=== PATIENT | female | born 1960 | race Caucasian/White ===

== ENCOUNTER 2017-06-13 19:57 | Emergency (ER) | payer BC ==
--- NOTE | 2017-06-13 20:00 | PDOC ---
History of Present Illness - History of Present Illness Initial Comments: HPI: The patient is a 56 year old female who presents to the emergency department complaining of right upper quadrant pain which began this morning. The patient reports waking up with mild right upper quadrant pain this morning which worsened after she ate a bagel with cream cheese. She reports the pain subsided , but after eating chicken at a restaurant for dinner, she felt a worse pain return. The patient describes the pain as severe and exacerbated through exertion. She reports an associated symptom of nausea. The patient denies chest pain, shortness of breath, headache, and dizziness. Denies fevers, chills, vomiting, diarrhea, and constipation. Denies dysuria, frequency, urgency, and hematuria. PAST MEDICAL HISTORY: Hernia (2014), Kidney Stones, Bipolar PAST SURGICAL HISTORY: Bariatric Surgery/Removal of Tail of Spleen FAMILY HISTORY: no pertinent history SOCIAL HISTORY: Pt lives with family and is employed. Alcohol consumption 5x a week. MEDICATIONS: reviewed ALLERGIES: As per nursing notes ROS: General: No fevers or chills, no weakness, no weight loss HEENT: No change in vision. No sore throat,. No ear pain CardioVascular: No chest pain or shortness of breath Respiratory:No cough, or wheezing. Gastrointestinal: (+)Nausea. No vomiting, diarrhea or constipation, No rectal bleeding Genitourinary: No dysuria, hematuria, or frequency Musculoskeletal: (+)RUQ pain.No joint pain or swelling Neurologic: No headache, vertigo, dizziness or loss of consciousness Psychiatric: nor depression Skin: No rashes or easy bruising Endocrine: no increased thirst or abnormal weight change Allergic: no skin or latex allergy All other systems reviewed and normal PE: General: Well-nourished well-developed individual, no acute distress HEENT: Throat: Normal, tonsils normal, no erythema or exudate Neck: Supple, no meningeal signs, no lymphadenopathy Eyes::Pupils equal reactive and round, extraocular motion intact Chest: Nontender to palpation Cardiac: S1-S2 normal, regular rate and rhythm, no murmurs rubs or gallops Respiratory: Lungs clear to auscultation bilateral Abdomen: (+)Moderately tender to palpation in abdomen diffusely with exception to RLQ. (+)Markedly tender to palpation in epigastric area. (+)Questionable palpable hernia left to umbilicus that is tender, but reducible. (+) Bowel sounds decreased, but present. No guarding or rebound. Extremities: Warm, dry, no cyanosis, clubbing, or edema Skin: No rashes Neuro: Alert and oriented x3, nonfocal exam, grossly intact. Psych: Normal mood and affect <Flower Man - Last Filed: 06/13/17 21:17> - General History Source: Patient Exam Limitations: No Limitations - History of Present Illness Initial Comments: 06/13/17 20:30 A portion of this note was documented by scribe services under my direction. I have reviewed the details of the note, within reason, and agree with the documentation. The case summary and management plan written by me. Medical decision making this is a 56-year-old female who comes in complaining of abdominal pain. Patient has an extensive history of abdominal surgeries including gastric bypass, hernia surgery with mesh repair, splenectomy. Who comes in complaining of primarily upper abdominal pain patient also has a history of kidney stones but denies history of gallstones. Differential diagnosis includes renal colic, cholecystitis, adhesions and obstruction, gastric bypass complications, incarcerated hernia, Will obtain workup including CBC, comp, lipase, CAT scan with IV contrast, EKG Will medicate with morphine and Zofran, well hydrated with IV fluids Will reassess and evaluated results of workup. 21:00 reevaluation: pt receiving fluids and pain medication, feels a little better. 06/13/17 23:01 22:00 Patient still having some pain and discomfort. Will remedicated with some more morphine 23:00 Patient's CAT scan shows no acute intra-abdominal pathology there is some incidental findings of bilateral renal cysts bilateral renal stones and a left angioma mild by home of the kidney. Otherwise there are a few gallstones but otherwise no gallbladder pathology there is no evidence of obstruction Patient has normal white count and normal differential, chem patient's chemistries are all normal. There is a trace amount of blood a few white cells and a trace amount of bacteria in the urine but otherwise patient has no urinary tract symptoms. Patient does feel somewhat better after the morphine and fluids. Patient is able to tolerate by mouth's. Patient discharged home will follow-up with her primary care doctor tomorrow if she is not better 06/13/17 23:12 Patient Name: JULIET BAIRES THIS IS A PRELIMINARY REPORT FROM [facility] DATE OF SERVICE: 2017-06-13 21:12:27 IMAGES: 487 EXAM: CT abdomen and pelvis without contrast HISTORY: Abdominal pain COMPARISON: None. FINDINGS: There is no bowel obstruction, free air, or free fluid. Negative for diverticulitis or colitis. Appendix not visualized. No pericecal inflammation. 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 Left renal parapelvic cysts. Bilateral nonobstructing renal stones. No ureteral stones or urinary tract obstruction. Tiny gallstones noted. The liver appears somewhat large even accounting for a Verito's lobe. Recommend followup Absent spleen. Status post gastric and bowel surgery No obvious abnormalities of the reproductive organs. No acute pancreatic abnormalities. Osseous structures are intact.. THIS DOCUMENT HAS BEEN ELECTRONICALLY SIGNED Elvis Mora MD <Kalani Mac I - Last Filed: 06/13/17 23:13> - General Chief Complaint: Pain, Acute Stated Complaint: LUQ PAIN RADIATING INTO BACK Time Seen by Provider: 06/13/17 20:00 Past History <Flower Man - Last Filed: 06/13/17 21:17> <Kalani Mac I - Last Filed: 06/13/17 23:13> - Past Medical History Allergies/Adverse Reactions: Allergies Allergy/AdvReac Type Severity Reaction Status Date / Time No Known Allergies Allergy Verified 06/13/17 19:59 Home Medications: Ambulatory Orders Clonazepam [Klonopin] 0.5 mg PO DAILY 06/13/17 Lamotrigine [Lamictal] 100 mg PO DAILY 06/13/17 Omeprazole 20 mg PO DAILY 06/13/17 Venlafaxine HCl [Effexor -] 75 mg PO DAILY 06/13/17 *Physical Exam - Vital Signs Last Vital Signs Temp Pulse Resp BP Pulse Ox 98.7 F 78 18 137/91 98 06/13/17 20:01 06/13/17 20:01 06/13/17 20:01 06/13/17 20:01 06/13/17 20:01 <Flower Man - Last Filed: 06/13/17 21:17> ED Treatment Course - LABORATORY CBC & Chemistry Diagram: 06/13/17 20:25 06/13/17 20:25 - ADDITIONAL ORDERS Additional order review: Laboratory Results 06/13/17 06/13/17 06/13/17 20:25 20:25 20:25 Sodium 136 Potassium 4.4 Chloride 108 H Carbon Dioxide 24 Anion Gap 4 L BUN 20 H Creatinine 1.0 Creat Clearance w eGFR 57.56 Random Glucose 87 Calcium 9.1 Total Bilirubin 0.5 AST 23 ALT 20 Alkaline Phosphatase 65 Creatine Kinase 85 Troponin I < 0.03 Total Protein 6.8 Albumin 3.8 Urine Color Urine Appearance Urine pH Ur Specific [place] Urine Protein Urine Glucose (UA) Urine Ketones Urine Blood Urine Nitrite Urine Bilirubin Urine Urobilinogen Ur Leukocyte Esterase Urine RBC Urine WBC Urine Bacteria 06/13/17 20:05 Sodium Potassium Chloride Carbon Dioxide Anion Gap BUN Creatinine Creat Clearance w eGFR Random Glucose Calcium Total Bilirubin AST ALT Alkaline Phosphatase Creatine Kinase Troponin I Total Protein Albumin Urine Color Yellow Urine Appearance Clear Urine pH 6.5 Ur Specific [place] 1.025 Urine Protein Negative Urine Glucose (UA) Negative Urine Ketones Trace Urine Blood Trace-intact H Urine Nitrite Negative Urine Bilirubin Negative Urine Urobilinogen 0.2 Ur Leukocyte Esterase Trace H Urine RBC 5-10 Urine WBC 2-4 Urine Bacteria Few 06/13/17 20:25 RBC 4.02 MCV 96.2 H MCHC 34.3 RDW 13.1 MPV 8.7 Neutrophils % 52.4 Lymphocytes % 31.9 Monocytes % 10.6 H Eosinophils % 3.0 Basophils % 2.1 H - Medications Given in the ED: ED Medications Discontinued Medications Generic Name Dose Route Start Last Admin Trade Name Laura PRN Reason Stop Dose Admin Morphine Sulfate 4 mg 06/13/17 20:23 06/13/17 20:49 Morphine Injection - IVPUSH 06/13/17 20:24 4 mg ONCE ONE Administration Ondansetron HCl 4 mg 06/13/17 20:23 06/13/17 20:49 Zofran Injection IVPUSH 06/13/17 20:24 4 mg ONCE ONE Administration <Flower Man - Last Filed: 06/13/17 21:17> - LABORATORY CBC & Chemistry Diagram: 06/13/17 20:25 06/13/17 20:25 <Kalani Mac I - Last Filed: 06/13/17 23:13> *DC/Admit/Observation/Transfer - Attestations Scribe Attestion: Documentation prepared by Flower Man, acting as medical coding auditor for Kalani Mac MD. <DonovanMandojoe - Last Filed: 06/13/17 21:17> - Discharge Dispostion Admit: No <Kalani Mac I - Last Filed: 06/13/17 23:13> Diagnosis at time of Disposition: Abdominal pain Qualifiers: Abdominal location: upper abdomen, unspecified Qualified Code(s): R10.10 - Upper abdominal pain, unspecified - Discharge Dispostion Disposition: HOME Condition at time of disposition: Stable - Referrals Referrals: Rajani Quigley MD [Primary Care Provider] - - Patient Instructions Additional Instructions: Return to the emergency department immediately with ANY new, persistent or worsening symptoms. Continue any medications as previously prescribed by your physician. You should follow up with your primary doctor as soon as possible regarding today's emergency department visit. . Please make sure your doctor reviews the results of your emergency evaluation. Thank you for coming to the Emergency Department today for your care. It was a pleasure to see you today. Please note that your evaluation is INCOMPLETE until you follow-up with your doctor. - Post Discharge Activity
[2017-06-13 20:13] VITALS: BP 137/91; PULSE 78; TEMP 98.7; BMI 29.2
[2017-06-13 20:17] LABS: PH,URINE 6.5 (4.5-8); URINE APPEARANCE Clear; URINE BILIRUBIN Negative (NEGATIVE); URINE BLOOD Trace-intact (NEGATIVE); URINE COLOR YELLOW; URINE GLUCOSE (UA) Negative (NEGATIVE); URINE KETONE Trace (NEGATIVE); URINE LEUK ESTERASE TRACE (NEGATIVE); URINE NITRITE Negative (NEGATIVE); URINE PROTEIN Negative (NEGATIVE); URINE UROBILINOGEN 0.2 (0.2-1.0)
[2017-06-13 20:23] LABS: URINE BACTERIA FEW /hpf (NEGATIVE)
[2017-06-13] MEDS ORDERED: ONDANSETRON 4 MG/2 ML VIAL IVPUSH ONE (20:23)
[2017-06-13] MEDS ORDERED: morphine CARPU-JECT 4 MG/1 ML DISP.SYRIN IVPUSH ONE ×2 (20:23→21:22)
[2017-06-13] MEDS ORDERED: SODIUM CHLORIDE 1,000 ML IV ONE (20:23)
[2017-06-13] MEDS ORDERED: ONDANSETRON 4 MG/2 ML VIAL ONE (20:41)
[2017-06-13] MEDS ORDERED: morphine SULFATE 4 MG/ML VIAL ONE ×2 (20:41→21:22)
[2017-06-13 20:48] LABS: BASO % 2.1 % (0-2.0); HEMATOCRIT 38.7 % (32.4-45.2); HEMOGLOBIN 13.3 GM/dl (10.7-15.3); LYMPH % 31.9 % (8-40); MCHC 34.3 g/dl (32.0-36.0); MEAN CELL VOLUME 96.2 fl (80-96); MEAN PLT VOLUME 8.7 fl (7.5-11.1); MONO % 10.6 % (3.8-10.2); NEUT % 52.4 % (42.8-82.8); PLATELET COUNT 497 K/MM3 (134-434); RBC 4.02 M/mm3 (3.60-5.2); RDW 13.1 % (11.6-15.6); WHITE BLOOD COUNT 7.9 K/mm3 (4.0-10.8)
[2017-06-13 20:53] LABS: ALBUMIN 3.8 g/dl (3.5-5.0); ALK PHOS 65 U/L (32-92); ANION GAP 4 (8-16); BLOOD UREA NITROGEN 20 mg/dl (7-18); CALCIUM 9.1 mg/dl (8.4-10.2); CHLORIDE 108 mmol/L (98-107); CO2 24 mmol/L (22-28); GLUCOSE,RANDOM 87 mg/dl (74-106); POTASSIUM 4.4 mmol/L (3.5-5.1); SGOT/AST 23 U/L (10-42); SGPT/ALT 20 U/L (10-40); SODIUM 136 mmol/L (136-145); TOT PROT 6.8 g/dl (6.4-8.3)
[2017-06-13 21:01] LABS: BILIRUBIN,TOTAL 0.5 mg/dl (0.2-1.0)
--- NOTE | 2017-06-14 12:32 | EKG ---
Test Reason : Blood Pressure : / mmHG Vent. Rate : 072 BPM Atrial Rate : 072 BPM P-R Int : 148 ms QRS Dur : 086 ms QT Int : 420 ms P-R-T Axes : 054 038 039 degrees QTc Int : 459 ms NORMAL SINUS RHYTHM NORMAL ECG NO PREVIOUS ECGS AVAILABLE Confirmed by ROLLY BOYKIN MD ([id number]) on 06/14/2017 12:32:18 PM Referred By: DARRIN LINO Confirmed By:ROLLY BOYKIN MD
== END 2017-06-13 23:21 | disposition home or self-care (01) ==
LOC: FER 19:57
PROC: 3E033NZ Introduction of Analgesics, Hypnotics, Sedatives into Peripheral Vein, Percutaneous Approach (ICD-10-PCS; principal; 2017-06-13)
PROC: 3E033GC Introduction of Other Therapeutic Substance into Peripheral Vein, Percutaneous Approach (ICD-10-PCS; 2017-06-13)
PROC: 3E0337Z Introduction of Electrolytic and Water Balance Substance into Peripheral Vein, Percutaneous Approach (ICD-10-PCS; 2017-06-13)
DX: R10.10 Upper abdominal pain, unspecified (principal); F31.9 Bipolar disorder, unspecified
CPT/HCPCS: 36415; 74176-TC; 80053; 81003; 81015; 82550; 83690; 84484; 85025; 87086; 93005; 99281-25; J7030

== ENCOUNTER 2019-04-21 12:09 | Emergency (ER) | payer BC ==
[2019-04-21] MEDS ORDERED: methylPREDNISolone NA SUCC 125 MG/2 ML VIAL IVPUSH ONE (12:12)
[2019-04-21] MEDS ORDERED: FAMOTIDINE 20 MG/50 ML IVPB 20 MG/50 ML MG IVPB ONE ×2 (12:12→12:26)
[2019-04-21] MEDS ORDERED: EPINEPHrine 1:1,000 0.3 MG/0.3 ML SYR IM ONE (12:13)
[2019-04-21] MEDS ORDERED: ONDANSETRON 4 MG/2 ML VIAL IVPUSH ONE (12:13)
[2019-04-21] MEDS ORDERED: SODIUM CHLORIDE 1,000 ML IV STA (12:14)
[2019-04-21] MEDS ORDERED: methylPREDNISolone NA SUCC 125 MG/2 ML VIAL ONE (12:26)
[2019-04-21] MEDS ORDERED: ONDANSETRON 4 MG/2 ML VIAL ONE (12:26)
[2019-04-21] MEDS ORDERED: EPINEPHrine/PF 1 MG/1 ML (1:1,000) AMPULE ONE (12:26)
[2019-04-21 12:31] VITALS: TEMP 98.2; BMI 26.5
--- NOTE | 2019-04-21 12:38 | PDOC ---
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 She denied chest pain, cough, fever, abdominal pain, back pain, rash. Pt denied HTN medications or ACEI or ARB. ROS General: denied fever, chills, generalized weakness. HEENT: denied sore throat, rhinorrhea, ear pain. Cardiovascular: denied chest pain, palpitations, syncope, diaphoresis. Respiratory: admitted to shortness of breath. denied cough, sputum production, hemoptysis. Gastrointestinal: admitted to nausea, vomiting. denied abdominal pain, diarrhea , constipation, blood in stool. Genitourinary: denied dysuria, increased urinary frequency, hematuria, urinary incontinence, flank pain. Back: denied back pain. Musculoskeletal: denied joint pain, muscle pain, joint swelling. Neurological: denied headache, dizziness, numbness, tingling, weakness. Integumentary: denied rash, laceration, abrasion. Hematologic/Lymphatic: denied bruising or bleeding. PE Constitutional: Well-nourished, Well-developed, appearing stated age. Actively gagging. HEENT: head is normocephalic, atraumatic. EOMI. PERRLA. mild uvular swelling. no posterior pharyngeal erythema. no tonsillar swelling or exudates bilaterally. uvula midline. no peritonsillar swelling. no jaw tenderness or misalignment. Neck: supple. Full ROM. Cardiovascular: regular heart rhythm. Normal S1 and S2. no murmurs. no pericardial friction rub. Respiratory: clear to auscultation bilaterally. no crackles, rhonchi or wheezing. no stridor. Gastrointestinal: soft, flat, nontender. normal bowel sounds. no rebound, guarding, or masses. Extremities: peripheral pulses intact and equal. no lower extremity edema noted. Neurological: CN 2-12 grossly intact. moves all four extremities. Psych: awake, alert, oriented x3. follows commands. answers questions appropriately. Past History - Past Medical History Allergies/Adverse Reactions: Allergies Allergy/AdvReac Type Severity Reaction Status Date / Time No Known Allergies Allergy Verified 04/21/19 12:13 Home Medications: Ambulatory Orders Clonazepam [Klonopin] 0.5 mg PO DAILY 06/13/17 Lamotrigine [Lamictal] 150 mg PO DAILY 06/13/17 Omeprazole 20 mg PO DAILY 06/13/17 Venlafaxine HCl [Effexor -] 75 mg PO DAILY 06/13/17 Epinephrine [Epipen 2-Roddy] 0.3 mg IJ ASDIR #1 kit 04/21/19 Epinephrine [Epipen 2-Roddy] 0.3 mg IJ ASDIR #1 kit 04/21/19 predniSONE [Deltasone -] 40 mg PO DAILY #8 tablet 04/21/19 - Psycho Social/Smoking Cessation Hx Smoking History: Never smoked Have you smoked in the past 12 months: No Hx Alcohol Use: Yes (5 TIMES A WEEK) Drug/Substance Use Hx: No Substance Use Type: Alcohol *Physical Exam - Vital Signs Last Vital Signs Temp Pulse Resp BP Pulse Ox 98.2 F 107 H 26 H 187/101 H 100 04/21/19 12:04/21/19 12:04/21/19 12:04/21/19 12:04/21/19 12:09 ED Treatment Course - LABORATORY CBC & Chemistry Diagram: 04/21/19 12:20 04/21/19 12:20 Medical Decision Making - Medical Decision Making 58 year old female with above PMH presented to ED with acute airway swelling, nausea, vomiting. Initial Vital Signs Temp Pulse Resp BP Pulse Ox 98.2 F 107 H 26 H 187/101 H 100 04/21/19 12:09 04/21/19 12:04/21/19 12:04/21/19 12:04/21/19 12:09 Labs ordered: CBC, CMP Imaging ordered: none Medications ordered: pepcid, zofran, solumedrol 125 mg IV once, Benadryl 25 mg IV once, epi-pen 0.3 mg SQ once, normal saline bolus 1000 cc once Suspected allergic reaction with unknown source of inciting substance. Pt denied new medications, reported only allergy is Sulfa. Pt denied new foods, reported last ate smoothie at 0900. 04/21/19 13:28 Laboratory Last Values WBC 10.4 K/mm3 (4.0-10.8) 04/21/19 12:20 RBC 3.59 M/mm3 (3.60-5.2) L 04/21/19 12:20 Hgb 12.2 GM/dl (10.7-15.3) 04/21/19 12:20 Hct 36.8 % (32.4-45.2) 04/21/19 12:20 MCV 102.6 fl (80-96) H 04/21/19 12:20 MCH 34.0 pg (25.7-33.7) H 04/21/19 12:20 MCHC 33.1 g/dl (32.0-36.0) 04/21/19 12:20 RDW 12.7 % (11.6-15.6) 04/21/19 12:20 Plt Count 480 K/MM3 (134-434) H 04/21/19 12:20 MPV 9.2 fl (7.5-11.1) 04/21/19 12:20 Absolute Neuts (auto) 7.2 K/mm3 04/21/19 12:20 Neutrophils % 70.3 % (42.8-82.8) 04/21/19 12:20 Lymphocytes % 16.9 % (8-40) 04/21/19 12:20 Monocytes % 9.1 % (3.8-10.2) 04/21/19 12:20 Eosinophils % 2.5 % (0-4.5) 04/21/19 12:20 Basophils % 1.2 % (0-2.0) 04/21/19 12:20 Sodium 132 mmol/L (136-145) L 04/21/19 12:20 Potassium 4.3 mmol/L (3.5-5.1) 04/21/19 12:20 Chloride 100 mmol/L (98-107) 04/21/19 12:20 Carbon Dioxide 25 mmol/L (21-32) 04/21/19 12:20 Anion Gap 7 MMOL/L (8-16) L 04/21/19 12:20 BUN 24.0 mg/dl (7-18) H 04/21/19 12:20 Creatinine 1.0 mg/dl (0.55-1.3) 04/21/19 12:20 Est GFR (CKD-EPI)AfAm 72.42 04/21/19 12:20 Est GFR (CKD-EPI)NonAf 62.49 04/21/19 12:20 Random Glucose 93 mg/dl (74-106) 04/21/19 12:20 Calcium 8.8 mg/dl (8.5-10) 04/21/19 12:20 Total Bilirubin 0.6 mg/dl (0.2-1) 04/21/19 12:20 AST 56 U/L (15-37) H 04/21/19 12:20 ALT 44 U/L (13-61) 04/21/19 12:20 Alkaline Phosphatase 63 U/L (45-117) 04/21/19 12:20 Total Protein 6.8 g/dl (6.4-8.2) 04/21/19 12:20 Albumin 4.0 g/dl (3.4-5.0) 04/21/19 12:20 04/21/19 18:01 Pt has had no recurrence of symptoms after 6 hour observation, reported she is feeling much better, she is comfortable with discharge. 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 She agreed with plan for care. Prescribed prednisone, epipens, and advised to get over the counter benadryl. Education on benadryl. went to pharmacy and reported that they are out of Epipens. Sent prescription to alternate [facility]. Discharge - Discharge Information Problems reviewed: Yes Clinical Impression/Diagnosis: Allergic reaction Condition: Improved Disposition: HOME - Admission No - Additional Discharge Information Prescriptions: Epinephrine [Epipen 2-Roddy] 0.3 mg IJ ASDIR #1 kit Epinephrine [Epipen 2-Roddy] 0.3 mg IJ ASDIR #1 kit predniSONE [Deltasone -] 40 mg PO DAILY #8 tablet - Follow up/Referral Referrals: Renee Mccloud MD [Staff Physician] - - Patient Discharge Instructions Additional Instructions: Follow up with your primary care doctor within 3 days regarding your Emergency Room visit. Bring all paperwork given to you today to your appointment. Bring all medication you were prescribed to your appointment. Follow up with an Allergy doctor within 3 days regarding your Emergency Room visit. Bring all paperwork given to you today to your appointment. Bring all medication you were prescribed to your appointment. I have provided you with a referral. I have sent a prescription to your pharmacy for a steroid. This will help to decrease the inflammation from the allergic reaction. Take as advised on label. Do not stop early even if you are feeling better. Your first dose was given in the Emergency Department. I have sent an Epi-Pen to your pharmacy. Pick it up immediately and always keep it with you no matter where you are. If you have another reaction in which you feel your airway closing or it is very hard to breathe use the Epi-Pen immediately and then proceed to the nearest Emergency Department. The Epi-Pen should be injected directly into your THIGH. Do not inject it anywhere else. Be careful and make sure the pen is not backwards, if you accidentally inject your finger you can cause to the finger. YOU MUST GO TO THE HOSPITAL as the medicine will wear off. Take Benadryl over the counter as needed for rash/itching. Take as advised on label. This medication can make you sleepy, you should not drive or operate heavy machinery when taking it. It is best to take at night. Return to the Emergency Department for fever, vomiting, lightheadedness, shortness of breath, chest pain, passing out, increasing swelling or any other new, worsening or concerning symptoms. - Post Discharge Activity Work/Back to School Note: Back to Work
[2019-04-21 12:45] LABS: BILIRUBIN,TOTAL 0.6 mg/dl (0.2-1); CALCIUM 8.8 mg/dl (8.5-10); POTASSIUM 4.3 mmol/L (3.5-5.1); TOT PROT 6.8 g/dl (6.4-8.2)
--- NOTE | 2019-04-21 12:47 | PDOC ---
Attending Attestation - Resident Resident Name: Lachelle Marquez - ED Attending Attestation I have performed the following: I have examined & evaluated the patient, The case was reviewed & discussed with the resident, I agree w/resident's findings & plan, Exceptions are as noted - HPI HPI: 58 yo F history bipolar disorder, nephrolithiasis presents with sensation as if her throat is closing. Symptoms were sudden onset. No known allergies, no new medications, no VITO-i use. +Nausea with dry heaves. No rash. - Physicial Exam PE: GENERAL: Awake, alert, and fully oriented. Anxious. +Dry heaves HEAD: No signs of trauma EYES: PERRLA, EOMI, sclera anicteric, conjunctiva clear ENT: Auricles normal inspection, hearing grossly normal, nares patent, oropharynx clear without exudates. Moist mucosa. +Mod edema of the uvula. Airway patent. NECK: Normal ROM, supple, no lymphadenopathy, JVD, or masses LUNGS: Breath sounds equal, clear to auscultation bilaterally. No wheezes, and no crackles HEART: Regular rate and rhythm, normal S1 and S2, no murmurs, rubs or gallops ABDOMEN: Soft, nontender, normoactive bowel sounds. No guarding, no rebound. No masses EXTREMITIES: Normal range of motion, no edema. No clubbing or cyanosis. No cords, erythema, or tenderness NEUROLOGICAL: Cranial nerves II through XII grossly intact. Normal speech, normal gait. Motor and sensation intact SKIN: Warm, dry, normal turgor, no rashes or lesions noted. - Medical Decision Making Pt with possible allergic reaction, unclear exposure. While she did not have any rash, she did have mild to moderate swelling of the uvula, therefore she was fully treated with epinephrine, H1/H2 blockers, and steroids. Will observe for 4-6 hours in the ED. 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
[2019-04-21 12:49] LABS: BASO % 1.2 % (0-2.0); EOS % 2.5 % (0-4.5); HEMATOCRIT 36.8 % (32.4-45.2); HEMOGLOBIN 12.2 GM/dl (10.7-15.3); LYMPH % 16.9 % (8-40); MCHC 33.1 g/dl (32.0-36.0); MEAN CELL VOLUME 102.6 fl (80-96); MEAN PLT VOLUME 9.2 fl (7.5-11.1); MONO % 9.1 % (3.8-10.2); NEUT % 70.3 % (42.8-82.8); PLATELET COUNT 480 K/MM3 (134-434); RBC 3.59 M/mm3 (3.60-5.2); RDW 12.7 % (11.6-15.6); WHITE BLOOD COUNT 10.4 K/mm3 (4.0-10.8)
[2019-04-21 16:48] VITALS: BP 120/57; PULSE 95
== END 2019-04-21 18:06 | disposition home or self-care (01) ==
LOC: FER 12:09
PROC: 3E033NZ Introduction of Analgesics, Hypnotics, Sedatives into Peripheral Vein, Percutaneous Approach (ICD-10-PCS; principal; 2019-04-21)
PROC: 3E0337Z Introduction of Electrolytic and Water Balance Substance into Peripheral Vein, Percutaneous Approach (ICD-10-PCS; 2019-04-21)
PROC: 3E033GC Introduction of Other Therapeutic Substance into Peripheral Vein, Percutaneous Approach (ICD-10-PCS; 2019-04-21)
PROC: 3E023GC Introduction of Other Therapeutic Substance into Muscle, Percutaneous Approach (ICD-10-PCS; 2019-04-21)
DX: T78.40XA Allergy, unspecified, initial encounter (principal); X58.XXXA Exposure to other specified factors, initial encounter
CPT/HCPCS: 36415; 80053; 85025; 99284-25; J7030

== ENCOUNTER 2024-07-17 17:19 | Emergency (ER) | payer BC ==
[2024-07-17 17:29] VITALS: BP 139/79; PULSE 81; RESP 18; TEMP 98.2; BMI 27.6
[2024-07-17] MEDS ORDERED: LIDOCAINE HCL 2% JELLY 10 ML CARTRIDGE ONE (18:10)
[2024-07-17] MEDS: LACTATED RINGERS SOLUTION 1000 ML INFUS.BAG IV ONE (18:21)
[2024-07-17] MEDS ORDERED: morphine SULFATE 4 MG/ML VIAL ONE ×2 (18:23→21:59)
[2024-07-17] MEDS: morphine CARPU-JECT 4 MG/1 ML DISP.SYRIN IVPUSH ONE ×2 (18:25→22:10)
[2024-07-17 18:31] LABS: ABSOLUTE IMMATURE GRANULOCYTES 0.01 x10^3/uL (0.0-0.031); BASOPHILS # 0.06 x10^3/uL (0.01-0.08); EOSINOPHIL % 2.3 % (0.7-5.8); EOSINOPHILS # 0.18 x10^3/uL (0.04-0.36); HEMATOCRIT 38.3 % (34.1-44.9); HEMOGLOBIN 12.5 g/dL (11.2-15.7); MCHC 32.6 g/dl (32.2-35.5); MEAN PLT VOLUME 9.7 fl (9.4-12.3); MONOCYTE # 0.76 x10^3/uL (0.24-0.86); MONOCYTE % 9.8 % (4.7-12.5); PLATELET COUNT 629 x10^3/uL (182-369); RDW 11.8 % (12.4-16.4)
[2024-07-17] MEDS: LIDOCAINE HCL 2% JELLY (30 ML/TUBE) TP ONE (18:31)
[2024-07-17 19:13] LABS: ALBUMIN 4.2 g/dl (3.4-5.0); BILIRUBIN,TOTAL 0.7 mg/dl (0.2-1); CALCIUM 9.5 mg/dl (8.5-10.1); CREATININE 0.9 mg/dl (0.6-1.3); POTASSIUM 4.2 mmol/L (3.5-5.1); TOT PROT 6.7 g/dl (6.4-8.2)
[2024-07-17] MEDS: LIDOCAINE HCL 2% JELLY 10 ML CARTRIDGE TP ONE (19:38)
[2024-07-17] MEDS ORDERED: KETOROLAC TROMETHAMINE 30 MG/1 ML VIAL ONE (19:41)
[2024-07-17] MEDS: KETOROLAC TROMETHAMINE 30 MG/1 ML VIAL IVPUSH ONE (20:05)
[2024-07-17] MEDS ORDERED: ONDANSETRON *ODT* 4 MG TABLET ONE (23:18)
[2024-07-17] MEDS: ONDANSETRON *ODT* 4 MG TABLET SL ONE (23:19)
== END 2024-07-17 23:27 | disposition home or self-care (01) ==
LOC: FER 17:19
PROC: 3E0333Z Introduction of Anti-inflammatory into Peripheral Vein, Percutaneous Approach (ICD-10-PCS; principal; 2024-07-17)
PROC: 3E033NZ Introduction of Analgesics, Hypnotics, Sedatives into Peripheral Vein, Percutaneous Approach (ICD-10-PCS; 2024-07-17)
PROC: 3E033NZ Introduction of Analgesics, Hypnotics, Sedatives into Peripheral Vein, Percutaneous Approach (ICD-10-PCS; 2024-07-17)
DX: R10.2 Pelvic and perineal pain (principal); R10.32 Left lower quadrant pain
CPT/HCPCS: 36415; 74177-TC; 76830-TC; 80053; 81003; 83605; 83690; 85025; 99285-25; Q0162; Q9967